=== PATIENT | female | born 1995 | race Caucasian/White ===

== ENCOUNTER → 2016-07-31 | Day surgery (SDC) | payer OTHER ==
[2007-10-03 17:53] VITALS: BP 125/80
[~2016-07-31] MED LIST: ANTIVERT 25MG #1 PAC PO; BENTYL 10 MG CA10 MG PO; BLM PO; CHLORASEPTI1 LOZ/PAC PO; IBU800 MG PO; PERCOCET 325 MG1 TA2 PO; PHENERGAN25 M1 PO; PRILOSEC OTC20 MG PO; PRILOSEC40 MG PO; XYLOCAINE PO; ZOFRAN ODT4 MG PO; ZOFRAN4 M1 SL; ZOVIRAX400 MG PO
--- NOTE | 2016-08-05 13:26 | Operative Report ---
Operative/Inv Procedure Report Surgery Date: 07/31/16 Name of Procedure: D&C removal of IUD Pre-Operative Diagnosis: Impacted IUD Post-Operative Diagnosis: Same Estimated Blood Loss: scant Surgeon/[employer]eneer [employer] Operator: NAHEED LOPEZ MD Anesthesia: local monitored anesthesi Operative/Procedure Note Note: The patient was brought to the operating room placed on the OR table in the dorsal supine position. She was given adequate anesthesia and repositioned in modified dorsal lithotomy. She was prepped and draped in the usual sterile fashion. A weighted speculum was inserted into the vagina with a [place] retractor single-tooth tenaculum was then she mentioned lip of the cervix. An endocervical curettage is performed. Cervix was injected with 1% lidocaine with epinephrine 2-1/2 mL in each quadrant. The cervix was then serially dilated. The IUD was identified grasped and removed. An endometrial curettage was then performed. This was removed patient was awakened and sent to recovery in good condition. All needle, sponge, and instrument counts were correct at the end of the procedure 2.
== END ==
LOC: STS 07:00
DX: T83.89XA Other specified complication of genitourinary prosthetic devices, implants and grafts, initial encounter (principal); Z30.432 Encounter for removal of intrauterine contraceptive device; Y76.8 Miscellaneous obstetric and gynecological devices associated with adverse incidents, not elsewhere classified
CPT/HCPCS: 81025; 88305; J2250